=== PATIENT | female | born 1975 | race Caucasian/White ===

== ENCOUNTER 2023-01-15 10:17 | Outpatient (CLI) | payer BC | END 2023-01-15 10:18 | disposition home or self-care (01) | LOC: DTY/OP 10:17 | PROVIDERS: ATTEND Surgery | DX: E66.01 Morbid (severe) obesity due to excess calories (principal) | CPT/HCPCS: 97802 ==

== ENCOUNTER 2023-01-29 08:00 | Inpatient (IN) | payer OTHER ==
[2023-01-29 09:23] VITALS: BMI 34.9
[2023-02-14] MEDS ORDERED: Bupivacaine 0.25% HCL 30 ML VIAL ONE (06:28)
[2023-02-14] MEDS ORDERED: EPINEPHrine 1 MG/ML AMP ONE (06:28)
[2023-02-14] MEDS ORDERED: Heparin 5,000 UNITS/ML VIAL ONE (06:37)
[2023-02-14] MEDS ORDERED: fentaNYL PF 100 MCG/2 ML SYRINGE ONE (07:08)
[2023-02-14] MEDS ORDERED: SUGAMMADEX SODIUM 200 MG/2 ML VIAL ONE (07:08)
[2023-02-14] MEDS ORDERED: CEFAZOLIN 2 GM VIAL ONE (07:25)
[2023-02-14] MEDS ORDERED: Sodium Chloride 0.9% 100 ML ONE (07:25)
[2023-02-14] MEDS ORDERED: Lidocaine 1% PF 5 ML VIAL ONE (07:35)
[2023-02-14] MEDS ORDERED: PROPOFOL 200 MG/20 ML VIAL ONE (07:35)
[2023-02-14] MEDS ORDERED: Ondansetron PF 4 MG/2 ML Vial ONE (07:35)
[2023-02-14] MEDS ORDERED: Rocuronium Bromide 10 MG/ML (10ML VIAL) ONE (07:35)
[2023-02-14] MEDS ORDERED: Dexamethasone 20 MG/5 ML VIAL ONE (07:35)
[2023-02-14] MEDS ORDERED: Ketorolac Tromethamine 30 MG/ML VIAL ONE (07:35)
[2023-02-14] MEDS ORDERED: Glycopyrrolate 0.2 MG/ML 5 ML SYRINGE ONE (07:35)
[2023-02-14] MEDS ORDERED: PHENYLEPHRINE-NS 100 MCG/ML 10 ML SYRINGE ONE (07:35)
[2023-02-14] MEDS ORDERED: Hydrocodone-Acetamin 15 ML UDCUP PO PRN (09:16)
[2023-02-14] MEDS ORDERED: Ipratropium/Albuterol 3 ML NEB NEB PRN (09:16)
[2023-02-14] MEDS ORDERED: hydrALAZINE 20 MG/ML VIAL SLOW IVP PRN (09:16)
[2023-02-14] MEDS ORDERED: Morphine 4 MG/ML VIAL SLOW IVP PRN (09:16)
[2023-02-14] MEDS ORDERED: Morphine 2 MG/ML VIAL SLOW IVP PRN (09:16)
[2023-02-14] MEDS ORDERED: Ondansetron PF 4 MG/2 ML Vial IVP PRN (09:16)
[2023-02-14] MEDS ORDERED: diphenhydrAMINE 50 MG/ML VIAL IVP PRN (09:16)
[2023-02-14] MEDS ORDERED: Dextrose 50% Abboject 50 ML SYRINGE SLOW IVP PRN (09:16)
[2023-02-14] MEDS ORDERED: Glucagon 1 MG/ML KIT IM PRN (09:16)
[2023-02-14] MEDS ORDERED: Dextrose 5% in Water 1,000 ML IV PRN (09:16)
[2023-02-14] MEDS ORDERED: D5 1/2 NS w/20 mEq KCL 1,000 ML ONE (09:39)
[2023-02-14] MEDS ORDERED: Promethazine HCl 25 MG/ML VIAL ONE (09:45)
[2023-02-14] MEDS: D5 1/2 NS w/20 mEq KCL 1,000 ML IV SCH ×2 (09:51→17:39)
[2023-02-14] MEDS ORDERED: Fentanyl 250 MCG/5 ML VIAL ONE (10:02)
[2023-02-14] MEDS ORDERED: Ketorolac Tromethamine 30 MG/ML VIAL IVP SCH (12:00)
[2023-02-14] MEDS: Ketorolac Tromethamine 30 MG/ML VIAL IVP SCH ×2 (14:45→20:56)
[2023-02-14] MEDS: CEFAZOLIN 2 GM in Sodium Chloride 0.9% 100 ML IVPB SCH ×2 (14:46→22:16)
[2023-02-14] MEDS: Promethazine HCl 25 MG/ML VIAL IM PRN ×2 (18:48→21:35)
[2023-02-14] MEDS: Bisacodyl 10 MG SUPP PR PRN (22:08)
[2023-02-15] MEDS: D5 1/2 NS w/20 mEq KCL 1,000 ML IV SCH ×3 (01:42→19:54)
[2023-02-15] MEDS: Ketorolac Tromethamine 30 MG/ML VIAL IVP SCH ×4 (03:55→22:20)
[2023-02-15] MEDS: Bisacodyl 10 MG SUPP PR PRN (03:56)
[2023-02-15 06:10] LABS: #Monocytes 0.8 thou/uL (0.11-0.59); #Neutrophils 6.8 thou/uL (1.40-6.50); %Basophils 0.2 % (0.0-1.0); %Eosinophils 0.1 % (0.0-10.0); %Lymphocytes 16.3 % (21.0-51.0); %Monocytes 8.9 % (0.0-10.0); %Neutrophils 74.2 % (42.0-75.0); Hemoglobin 12.6 g/dL (12.0-16.0); Mean Corpuscular HGB CONC 33.2 g/dL (32.0-36.0); Mean Corpuscular Hemoglobin 30.5 pg (27.0-31.0); Mean Platelet Volume 13.6 fL (7.4-10.4); RBC Distribution Width 13.1 % (11.5-14.5); Red Blood Cell (RBC) Count 4.13 mill/uL (4.20-5.40); White Blood Cell (WBC) Count 9.2 10x3/uL (4.8-10.8)
[2023-02-15 06:13] LABS: Platelet Count 122 10x3/uL (130-400)
[2023-02-15 06:29] LABS: Anion Gap 12 mmol/L (10-20); BUN (Urea Nitrogen) 9 mg/dL (7.0-18.7); Calc. Creatinine Clearance 153 mL/min (70-130); Calcium 8.5 mg/dL (7.8-10.44); Carbon Dioxide 20 mmol/L (22-29); Chloride 107 mmol/L (98-107); Estimated GFR 99; Glucose 124 mg/dL (70-105); Potassium 4.1 mmol/L (3.5-5.1); Sodium 135 mmol/L (136-145)
[2023-02-15] MEDS: Pantoprazole 40 MG VIAL IVP SCH (09:19)
[2023-02-16] MEDS: Ketorolac Tromethamine 30 MG/ML VIAL IVP SCH ×3 (02:54→15:09)
[2023-02-16] MEDS: D5 1/2 NS w/20 mEq KCL 1,000 ML IV SCH ×2 (02:55→02:59)
[2023-02-16] MEDS: Pantoprazole 40 MG VIAL IVP SCH (09:58)
[2023-02-16 15:53] VITALS: BP 113/68; TEMP 97.5
== END 2023-02-16 16:12 | disposition home or self-care (01) | DRG 621 ==
LOC: SURG A 02-14 06:17 → SJJU 02-14 14:22
PROVIDERS: ADMIT Surgery; ATTEND Surgery
PROC: 0DB64Z3 Excision of Stomach, Percutaneous Endoscopic Approach, Vertical (ICD-10-PCS; principal; 2023-02-14)
DX: E66.01 Morbid (severe) obesity due to excess calories (principal); Z68.35 Body mass index [BMI] 35.0-35.9, adult
CPT/HCPCS: 36415; 80048; 85025; 88307; C9113; J0171; J1100; J1644; J1650; J1885; J2405; J2550; J2704; J3010; J3480; J3490; S0020

== ENCOUNTER 2023-01-29 08:31 | Outpatient (CLI) | payer BC, SELFPAY ==
[2023-01-29 09:35] LABS: #Basophils 0.1 10x3/uL (0.0-0.2); #Eosinphils 0.1 10x3/uL (0.0-0.5); #Monocytes 0.3 10x3/uL (0.0-1.1); #Neutrophils 2.7 10x3/uL (1.5-8.4); %Basophils 1.6 % (0.0-2.0); %Eosinophils 1.8 % (0.0-6.0); %Lymphocytes 28.3 % (18.0-47.0); %Monocytes 6.4 % (0.0-10.0); %Neutrophils 61.9 % (40.0-75.0); Hemoglobin 14.2 g/dL (12.0-15.5); Mean Corpuscular HGB CONC 31.1 g/dL (32.0-36.0); Mean Corpuscular Hemoglobin 30.1 pg (27.0-33.0); Mean Corpuscular Volume 96.8 fl (81.6-98.3); Mean Platelet Volume 12.7 fl (7.4-10.4); Platelet Count 154 10x3/uL (150-450); Red Blood Cell (RBC) Count 4.71 10x6/uL (3.90-5.03); White Blood Cell (WBC) Count 4.4 10x3/uL (3.5-10.5)
[2023-01-29 09:37] LABS: ALT (SGPT) 14 U/L (8-55); AST (SGOT) 18 U/L (5-34); Albumin 4.2 g/dL (3.5-5.0); Alkaline Phosphatase 65 U/L (40-110); Anion Gap 16 mmol/L (10-20); BUN (Urea Nitrogen) 15 mg/dL (7.0-18.7); Bilirubin, Total 0.5 mg/dL (0.2-1.2); Calc. Creatinine Clearance 0 mL/min (70-130); Calcium 8.9 mg/dL (7.8-10.44); Carbon Dioxide 23 mmol/L (22-29); Chloride 105 mmol/L (98-107); Estimated GFR 93; Globulin 2.6 g/dL (2.4-3.5); Glucose 78 mg/dL (70-105); Potassium 4.4 mmol/L (3.5-5.1); Protein, Total 6.8 g/dL (6.0-8.3); Sodium 140 mmol/L (136-145)
[2023-01-29 14:36] LABS: Hemoglobin A1c 4.9 % (4.0-6.0)
== END 2023-01-29 08:32 | disposition home or self-care (01) ==
LOC: LABBT 08:31
PROVIDERS: ATTEND Surgery
DX: Z01.818 Encounter for other preprocedural examination (principal)
CPT/HCPCS: 71046; 80053; 83036; 85025; 93005; 93010